=== PATIENT | female | born 1970 | race Caucasian/White ===

== ENCOUNTER → 2016-09-14 | Outpatient (CLI) | payer BC ==
--- NOTE | 2016-09-14 10:44 | DI ---
Indication: ITS.REASON: S99.911A Unspecified injury of right ankle, initial encounter PROCEDURE: ANKLE RIGHT 3 VIEW: Encounter: Initial Comparison: None Findings: There is no acute fracture, dislocation or malalignment identified. Old internally fixed distal fibular fracture. There is lucency surrounding the two distal threaded screws that could be due to loosening or infection. Impression: No fracture. Possible loosening or infection of the two distal fibular screws. .
== END ==
LOC: IMA 09:40
PROVIDERS: ATTEND Family Medicine Sports Medicine
DX: R93.7 Abnormal findings on diagnostic imaging of other parts of musculoskeletal system (principal)